=== PATIENT | male | born 1965 | race American Indian/Alaskan Native ===

== ENCOUNTER 2019-11-02 08:54 | Day surgery (SDC) | payer OTHER ==
[~2019-11-02] VITALS: Ht 180.3 cm; Wt 92.5 kg
[2019-11-02] MEDS ORDERED: VITD400 PO (09:37)
[2019-11-02] MEDS ORDERED: LIDOCAINE 2% 100 MG/5 ML UJET TP ONE (10:17)
[2019-11-02] MEDS ORDERED: fentaNYL 0.05 MG/ML VIAL ONE (10:17)
[2019-11-02] MEDS ORDERED: MIDAZOLAM 2 MG/2 ML VIAL ONE (10:17)
[2019-11-02] MEDS ORDERED: fentaNYL 0.05 MG/ML VIAL IVP ONE (11:55)
[2019-11-02] MEDS ORDERED: MIDAZOLAM 2 MG/2 ML VIAL IVP ONE (11:55)
== END 2019-11-02 11:25 | disposition home or self-care (01) ==
LOC: MDS 08:54 → MMU 08:54 → MDS 11:25
PROVIDERS: ATTEND Internal Medicine Gastroenterology
DX: K62.5 Hemorrhage of anus and rectum (principal); K64.8 Other hemorrhoids; K59.00 Constipation, unspecified
CPT/HCPCS: 45378; J2250; J3010